=== PATIENT | male | born 1990 | race Caucasian/White ===

== ENCOUNTER 2016-12-08 23:06 | Emergency (ER) | payer SELFPAY ==
[~2016-12-08] VITALS: Ht 182.9 cm; Wt 86.5 kg
[2016-12-08 23:12] VITALS: Ht 182.9 cm; Wt 86.5 kg
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
[2016-12-09] MEDS ORDERED: KETOROLAC 60 MG INJ IM STA (01:32)
[2016-12-09] MEDS ORDERED: IBUP800T25 PO (01:37)
[2016-12-09] MEDS ORDERED: DIAZ-90 PO (01:37)
[2016-12-09] MEDS ORDERED: CYCLOBENZAPRINE 10 MG TAB PO ONE (02:00)
[2016-12-09 02:34] VITALS: BP 120/60; PULSE 73; RESP 15
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
== END 2016-12-09 02:34 | disposition home or self-care (01) ==
LOC: FTE 23:06
DX: S02.2XXA Fracture of nasal bones, initial encounter for closed fracture (principal); V49.59XA Passenger injured in collision with other motor vehicles in traffic accident, initial encounter
CPT/HCPCS: 70450; 70486; 72125; J1885; 96372